=== PATIENT | female | born 1930 | race African-American/Black ===

== ENCOUNTER 2017-08-16 12:18 | Emergency (ER) | payer OTHER ==
[~2017-08-16] VITALS: Ht 144.8 cm; Wt 47.2 kg
[~2017-08-16 12:18] MED LIST: UNOBMED
[2017-08-16] MEDS ORDERED: COZAAR25 MG ORAL (12:25)
[2017-08-16] MEDS ORDERED: ALBUTEROL SULF8.5 GM INH (12:25)
--- NOTE | 2017-08-16 12:39 | Emergency Room Report ---
History of Present Illness General Chief Complaint: Lower Back Pain or Injury Source: EMS Present Illness HPI 86-year-old female with past medical history of osteoporosis, hypertension p/w back pain for one days. Patient states pain started when she got up from bed this morning. Pain is localized to [ ] lower back, sharp nature, radiating down the left buttocks and leg. Movement worsens pain. There are no alleviating factors. Patient did not take any medications This is the first occurrence of back pain. Denies trauma. Denies lower extremity weakness/numbness, no bowel/bladder retention or incontinence, saddle anesthesia. Denies fever, chills, abdominal pain, n/v, dysuria/hematuria. No history of IVDA Allergies: Coded Allergies: ERYTHROMYCIN BASE (Unverified Allergy, Unknown, 08/16/17) Patient History Past Medical History: see triage record Past Surgical History: none Pertinent Family History: none Reviewed Nursing Documentation: PMH: Agreed, PSxH: Agreed Nursing Documentation-PMH Hx Hypertension: Yes Hx COPD: Yes Review of Systems All Other Systems: negative except mentioned in HPI Physical Exam Vital Signs Date Time Temp Pulse Resp B/P (MAP) Pulse Ox O2 Delivery O2 Flow Rate FiO2 08/16/17 12:15 98.1 86 18 134/71 98 Room Air Sp02 EP Interpretation: reviewed, normal General Appearance: normal inspection, well appearing, no apparent distress, alert, GCS 15, non-toxic Head: normocephalic, atraumatic Eyes: bilateral eye normal inspection, bilateral eye PERRL, bilateral eye EOMI ENT: normal ENT inspection, normal pharynx, normal voice, moist mucus membranes Neck: normal inspection, full range of motion, supple Respiratory: normal inspection, lungs clear, normal breath sounds, no respiratory distress, no retraction, no wheezing, speaking full sentences, chest symmetrical Cardiovascular #1: normal inspection, regular rate, rhythm, no edema, normal capillary refill Cardiovascular #2: 2+ radial (R), 2+ radial (L) Gastrointestinal: normal inspection, non tender, soft, non-distended, no guarding Musculoskeletal: other - +L lower lumbar paraspinal tenderness, no midline tenderness, no gross bony deformities, no leg shortening/rotation Neurologic: normal inspection, alert, oriented x3, responsive, motor strength/ tone normal, sensory intact, normal gait, speech normal Psychiatric: normal inspection, judgement/insight normal, memory normal Skin: normal inspection, normal color, no rash, warm/dry, well hydrated, normal turgor Medical Decision Making Diagnostic Impression: Primary Impression: Low back pain ER Course 86 yo F with 1 day of back pain no trauma musculoskeleal back pain, not as concerned with fracture as patient is tender L lower lumbar area, radiates down L thigh, more consistent with sciatica no complaints of urinary retention, leg weakness for worry of cauda equina/cord compression Plan XR, pain control ER course: Patient feels much better with pain meds able to ambulate with walker Disposition: Patient DC'ed back to home via amb[place]lette as patient does not have a ride back home. Strict return prec discussed, otherwise patient instructed to f/u with her pmd in 5 days. Other X-Ray Diagnostic Results Other X-Ray Diagnostic Results : X-Ray ordered: L Hip # of Views/Limited Vs Complete: 3 View Indication: Pain EP Interpretation: Yes Interpretation: no dislocation, no soft tissue swelling, no fractures, other - degen changes of hip Impression: Other - degenerative changes Electronically Signed by: electronically signed by Kelly Vargas MD Last Vital Signs Date Time Temp Pulse Resp B/P (MAP) Pulse Ox O2 Delivery O2 Flow Rate FiO2 08/16/17 12:15 98.1 86 18 134/71 98 Room Air Scripts Acetaminophen* (ACETAMINOPHEN EXTRA STRENGTH*) 500 Mg Tablet 500 MG ORAL Q8H Y for Fever/Headache/Mild Pain, #30 TAB 0 Refills Prov: Kelly Vargas M.D. 08/16/17 Methocarbamol* (ROBAXIN-750*) 750 Mg Tablet 750 MG PO QID, #28 TAB 0 Refills Prov: Kelly Vargas M.D. 08/16/17 Kelly Vargas M.D. Aug 16, 2017 12:39
[2017-08-16] MEDS ORDERED: Methocarbamol 750mg tab ORAL ONE (12:45)
[2017-08-16 12:55] VITALS: BP 137/78
--- NOTE | 2017-08-16 13:59 | Diagnostic Imaging Report ---
Indication: PAIN Technique: 2 views of the left hip Comparison: None Findings: No acute fractures. No dislocations. There is mild degenerative disc narrowing of the hip joint. There is spurring of the superior acetabulum. The bones are demineralized. There are vascular calcifications Impression: No definite acute bony trauma. Note, however, that in elderly osteoporotic patients, nondisplaced hip or pelvic fractures can easily be occult. Consider cross-sectional imaging if there is high clinical suspicion. Mild degenerative changes of the left hip Osteoporosis
[2017-08-16] MEDS ORDERED: ROBAXIN-750750 MG PO (14:13)
[2017-08-16] MEDS ORDERED: ACETAMINOPHEN500 M3 ORAL (14:13)
[2017-08-16 14:43] VITALS: BP 134/81
[2017-08-16 15:29] VITALS: BP 134/81
== END 2017-08-16 15:31 | disposition home or self-care (01) ==
LOC: EDBD 12:18 → EMR 12:50
DX: M54.5 Low back pain (principal); I10 Essential (primary) hypertension; J44.9 Chronic obstructive pulmonary disease, unspecified; Z88.8 Allergy status to other drugs, medicaments and biological substances; M79.605 Pain in left leg; M81.0 Age-related osteoporosis without current pathological fracture
CPT/HCPCS: 73502; 99284